=== PATIENT | female | born 1950 | race Caucasian/White ===

== ENCOUNTER → 2017-04-02 | Outpatient (CLI) | payer MEDICARE ==
--- NOTE | 2017-04-02 12:24 | REPMRS ---
Patient History The patient states she has not had a clinical breast exam in over a year. Patient is postmenopausal. Family history of prostate cancer in maternal uncle. Benign stereotactic core biopsy of the right breast, April 01, 2016. Digital Woman Screen Mammo: April 02, 2017 - Exam #: [id number] Bilateral CC and MLO view(s) were taken. Technologist: Mary Joshi, Technologist Prior study comparison: March 25, 2016, right breast digital mammo diagnostic unilateral, performed at [facility]. March 20, 2016, digital woman screen mammo performed at [facility]. July 17, 2010, bilateral bilat screen digital mammo performed at [facility]. FINDINGS: The breast tissue is extremely dense which could obscure a lesion on mammography. The patient states that there are no palpable abnormalities or other breast complaints. There has been no change in the appearance of the mammogram from the prior studies. There is extremely dense fibroglandular tissue which is fairly symmetric. There is a biopsy marking clip superorly in the right breast. There is no interval development of dominant mass, areas of architectural distortion, or clustered microcalcification typical of malignancy. ASSESSMENT: BI-RADS/ACR category 1 mammogram. Negative. Recommendation Routine screening mammogram in 1 year (for women over age 40). This mammogram was interpreted with the aid of an FDA-approved computer-aided dectection system. A. Negative x-ray reports should not delay biopsy if a dominant or clinically suspicious mass is present. B. Not all cancers are identified by mammography. C. Adenosis and dense breast may obscure an underlying neoplasm. Electronically Signed By: Soto Coleman M.D. 04/02/17 [id number]
== END ==
LOC: M WHC 11:35
PROVIDERS: ATTEND Family Medicine
DX: Z12.31 Encounter for screening mammogram for malignant neoplasm of breast (principal)

== ENCOUNTER → 2018-04-04 | Outpatient (CLI) | payer MEDICARE | LOC: M WHC 12:45 | DX: Z12.31 Encounter for screening mammogram for malignant neoplasm of breast (principal) | CPT/HCPCS: 77067 ==

== ENCOUNTER → 2019-04-07 | Outpatient (CLI) | payer MEDICARE ==
--- NOTE | 2019-04-07 12:53 | REPMRS ---
Patient History The patient states she has not had a clinical breast exam in over a year. Patient is postmenopausal. Family history of prostate cancer at age 50 or over in maternal uncle. Benign stereotactic core biopsy of the right breast, April 01, 2016. 3D TOMOSYNTHESIS WAS PERFORMED. [facility] lifetime risk for breast cancer is 4.7%. Digital Woman Screen Mammo: April 07, 2019 - Exam #: [id number] Bilateral CC and MLO view(s) were taken. Technologist: [place] Beck Technologist Prior study comparison: April 04, 2018, bilateral digital woman screen mammo performed at [facility]. April 02, 2017, digital woman screen mammo performed at [facility]. FINDINGS: The breast tissue is heterogeneously dense. This may lower the sensitivity of mammography. There has been no change in the appearance of the mammogram from the prior studies. There is a moderate amount of residual fibroglandular tissue which is fairly symmetric. There is no interval development of dominant mass, areas of architectural distortion, or clustered microcalcification typical of malignancy. Assessment: BI-RADS/ACR category 1 mammogram. Negative Mammogram. Recommendation Routine screening mammogram in 1 year (for women over age 40). This mammogram was interpreted with the aid of an FDA-approved computer-aided dectection system. Electronically Signed By: Soto Melgar MD 04/07/19 [id number]
== END ==
LOC: M WHC 11:12
PROVIDERS: ATTEND Family Medicine
DX: Z12.31 Encounter for screening mammogram for malignant neoplasm of breast (principal); Z78.0 Asymptomatic menopausal state

== ENCOUNTER → 2020-04-24 | Outpatient (CLI) | payer MEDICARE ==
--- NOTE | 2020-05-13 14:05 | REPMRS ---
Patient History The patient states she has not had a clinical breast exam in over a year. Patient is postmenopausal. Family history of prostate cancer at age 50 or over in maternal uncle. Benign stereotactic core biopsy of the right breast, April 01, 2016. Digital Woman Screen Mammo: April 24, 2020 - Exam #: [id number] Bilateral CC and MLO view(s) were taken. Technologist: Teetee Castrejon, Technologist Prior study comparison: April 07, 2019, bilateral digital woman screen mammo performed at [facility]. April 04, 2018, bilateral digital woman screen mammo performed at [facility]. April 02, 2017, digital woman screen mammo performed at [facility]. FINDINGS: There are scattered fibroglandular densities. The Volpara volumetric breast density category is:B. There is a needle biopsy marker clip in the right breast. There has been no change in the appearance of the mammogram from the prior studies. There is a mild amount of scattered fibroglandular density which is fairly symmetric. There is no interval development of dominant mass, architectural distortion, or grouped microcalcification suggestive of malignancy. 3-D tomosynthesis shows no additional findings. Assessment: BI-RADS/ACR category 2 mammogram. Benign Findings. Recommendation Routine screening mammogram of both breasts in 1 year (for women over age 40). This patient's Lifetime Breast Cancer Risk is estimated at 4.4 %. This mammogram was interpreted with the aid of an FDA-approved computer-aided dectection system. Electronically Signed By: Swapnil Rick MD 05/13/20 [id number]
== END ==
LOC: M WHC 08:04
PROVIDERS: ATTEND Family Medicine
DX: Z12.31 Encounter for screening mammogram for malignant neoplasm of breast (principal); Z86.018 Personal history of other benign neoplasm; Z78.0 Asymptomatic menopausal state; Z97.8 Presence of other specified devices

== ENCOUNTER → 2021-05-09 | Outpatient (CLI) | payer MEDICARE ==
--- NOTE | 2021-05-09 12:54 | REPMRS ---
Patient History The patient states she has not had a clinical breast exam in over a year. Family history of prostate cancer at age 50 or over in maternal uncle. Benign stereotactic core biopsy of the right breast, April 01, 2016. Patient states no breast complaints today. Patient has signed MRS History Sheet. Digital Woman Screen Mammo: May 09, 2021 - Exam #: [id number] Bilateral CC and MLO view(s) were taken. Technologist: Mary Joshi, Technologist Prior study comparison: April 24, 2020, bilateral digital woman screen mammo performed at [facility]. April 07, 2019, bilateral digital woman screen mammo performed at [facility]. April 04, 2018, bilateral digital woman screen mammo performed at [facility]. FINDINGS: There are scattered fibroglandular densities. The Volpara volumetric breast density category is:B. There is a needle biopsy marker clip noted in the right breast. There has been no change in the appearance of the mammogram from the prior studies. There is a mild amount of scattered fibroglandular density which is fairly symmetric. There is no interval development of dominant mass, architectural distortion, or grouped microcalcification suggestive of malignancy. 3-D tomosynthesis shows no additional findings. Assessment: BI-RADS/ACR category 2 mammogram. Benign Findings. Recommendation Routine screening mammogram of both breasts in 1 year (for women over age 40). This patient's [facility] Lifetime Breast Cancer Risk is estimated at 4.2 %. This mammogram was interpreted with the aid of an FDA-approved computer-aided dectection system. Electronically Signed By: Swapnil Rick MD 05/09/21 2270
== END ==
LOC: M WHC 12:15
PROVIDERS: ATTEND Family Medicine
DX: Z12.31 Encounter for screening mammogram for malignant neoplasm of breast (principal); Z80.42 Family history of malignant neoplasm of prostate

== ENCOUNTER → 2023-01-27 | Outpatient (CLI) | payer MEDICARE | LOC: M WHC 09:54 | PROVIDERS: ATTEND Family Medicine | DX: Z12.31 Encounter for screening mammogram for malignant neoplasm of breast (principal) ==

== ENCOUNTER → 2024-04-28 | Outpatient (CLI) | payer MEDICARE ==
[~2024-04-28] MED LIST: ATOR1TAB21 PO; CIPR250T3 PO; CIPR500T39 PO; MELO15TA28 PO; METO1TAB7 PO; METO37.5 PO; METO50TA7 PO; METR-265 PO; METR375C3 PO; OMEP-173 PO; ONDA-282 PO; PRED20TA PO
== END ==
LOC: M WHC 13:04
PROVIDERS: ATTEND Family Medicine
DX: Z12.31 Encounter for screening mammogram for malignant neoplasm of breast (principal); R92.333 Mammographic heterogeneous density, bilateral breasts

== ENCOUNTER → 2025-05-01 | Outpatient (CLI) | payer MEDICARE | LOC: M WHC 11:07 | PROVIDERS: ATTEND Family Medicine | DX: Z12.31 Encounter for screening mammogram for malignant neoplasm of breast (principal); R92.323 Mammographic fibroglandular density, bilateral breasts ==